=== PATIENT | female | born 1940 | race Caucasian/White ===

== ENCOUNTER 2018-08-09 10:45 | Observation (INO) | payer MEDICARE, OTHER ==
[2018-08-09] MEDS ORDERED: Albuterol/Ipratropium 3.0-0.5 MG/3 ML Neb Soln NEB ONE (11:13)
[2018-08-09] MEDS ORDERED: Acetaminophen 325 MG Tab PO PRN (11:14)
[2018-08-09] MEDS ORDERED: Magnesium Hydroxide 400 MG/5 ML Susp 30 ML Cup PO PRN (11:14)
[2018-08-09] MEDS ORDERED: Albuterol 0.083% 2.5 MG/3 ML Neb Soln NEB PRN (11:14)
[2018-08-09] MEDS ORDERED: Sodium Chloride 0.9% 10 ML Syringe FLUSH PRN (11:14)
[2018-08-09] MEDS ORDERED: Ondansetron 4 MG Tab.DIS PO PRN (11:14)
[2018-08-09 11:49] LABS: CHLORIDE,CL 106 mEq/L (98-106); SODIUM,NA 142 mEq/L (136-145)
[2018-08-09] MEDS: methylPREDNISolone Sodium Succinate 125 MG/2 ML SDV IVPUSH SCH (11:58)
[2018-08-09] MEDS: Sodium Chloride 0.9% 1,000 ML IV SCH (11:58)
[2018-08-09] MEDS: Albuterol/Ipratropium 3.0-0.5 MG/3 ML Neb Soln NEB SCH ×3 (11:59→19:31)
[2018-08-09] MEDS: Levofloxacin/Dextrose 5%-Water 500 MG in Premix Bag 1 BAG IV SCH (12:02)
[2018-08-09] MEDS: Enoxaparin 40 MG/0.4 ML Syringe SUBCUT SCH (12:09)
[2018-08-09] MEDS ORDERED: Albuterol HFA 18 Gm Inhaler INH PRN (14:58)
[2018-08-09] MEDS: GUAIFENESIN 200 MG PO PRN (17:58)
[2018-08-09] MEDS: FORMOTEROL INH SCH (19:32)
[2018-08-09] MEDS: BUDESONIDE INH SCH (19:32)
[2018-08-10] MEDS: Sodium Chloride 0.9% 1,000 ML IV SCH (00:29)
[2018-08-10] MEDS: GUAIFENESIN 200 MG PO PRN (01:09)
[2018-08-10] MEDS: Albuterol/Ipratropium 3.0-0.5 MG/3 ML Neb Soln NEB SCH ×4 (07:31→19:30)
[2018-08-10] MEDS: methylPREDNISolone Sodium Succinate 125 MG/2 ML SDV IVPUSH SCH ×2 (07:32→16:04)
[2018-08-10] MEDS: Aspirin 81 MG Tab.EC PO SCH (07:32)
[2018-08-10] MEDS: BUDESONIDE INH SCH ×2 (07:33→19:30)
[2018-08-10] MEDS: FORMOTEROL INH SCH ×2 (07:33→19:30)
[2018-08-10] MEDS: Levofloxacin/Dextrose 5%-Water 500 MG in Premix Bag 1 BAG IV SCH (11:37)
[2018-08-10] MEDS: Enoxaparin 40 MG/0.4 ML Syringe SUBCUT SCH (11:38)
--- NOTE | 2018-08-10 14:14 | PCM.PN ---
- General Info Date of Service: 08/10/18 Admission Dx/Problem (Free Text): COPD Exacerbation with URI Functional Status: Reports: Pain Controlled, Tolerating Diet, Ambulating - Review of Systems General: Denies: Fever, Weakness, Fatigue HEENT: Reports: Rhinitis Pulmonary: Reports: Shortness of Breath, Cough, Wheezing Cardiovascular: Denies: Chest Pain, Edema, Lightheadedness Gastrointestinal: Denies: Abdominal Pain, Nausea, Vomiting Genitourinary: Reports: No Symptoms Musculoskeletal: Reports: No Symptoms Skin: Reports: No Symptoms Neurological: Reports: No Symptoms - Patient Data Vitals - Most Recent: Last Vital Signs Temp 97.1 F 08/10/18 11:53 Pulse 81 08/10/18 11:53 Resp 20 08/10/18 11:53 BP 140/79 08/10/18 11:53 Pulse Ox 95 08/10/18 11:53 Weight - Most Recent: 209 lb 1.6 oz I&O - Last 24 Hours: Intake & Output 08/09/18 08/10/18 08/10/18 22:59 06:59 14:59 Intake Total 939 365 Balance 939 365 Lab Results Last 24 Hours: Laboratory Results - last 24 hr 08/09/18 Range/Units 11:30 D-Dimer, Quantitative 0.44 (0.00-0.50) Young Results Last 24 Hours: Microbiology 08/09/18 15:05 Influenza Type A Antigen Screen - Final Nasopharyngeal Swab NEGATIVE INFLUENZA A VIRUS AG Influenza Type B Antigen Screen - Final NEGATIVE INFLUENZA B VIRUS AG Med Orders - Current: Current Medications Acetaminophen (Tylenol) 650 mg PO Q4H PRN PRN Reason: Pain (Mild 1-3)/fever Albuterol (Proventil Neb Soln) 2.5 mg NEB Q2H PRN PRN Reason: Shortness Of Breath/wheezing Albuterol (Ventolin Hfa) 0 gm INH Q4H PRN PRN Reason: Dyspnea Albuterol/Ipratropium (Duoneb 3.0-0.5 Mg/3 Ml) 3 ml NEB QIDRT [facility] Last Admin: 08/10/18 11:38 Dose: 3 ml Aspirin (Halfprin) 81 mg PO DAILY [facility] Last Admin: 08/10/18 07:32 Dose: 81 mg Enoxaparin Sodium (Lovenox) 40 mg SUBCUT DAILY@1200 [facility] Last Admin: 08/10/18 11:38 Dose: 40 mg Guaifenesin (Organ-I Nr) 200 mg PO Q4H PRN PRN Reason: Cough Last Admin: 08/10/18 01:09 Dose: 200 mg Levofloxacin/Dextrose 500 mg/ (Premix) 100 mls @ 100 mls/hr IV DAILY@1200 [facility] Last Admin: 08/10/18 11:37 Dose: 100 mls/hr Sodium Chloride (Normal Saline) 1,000 mls @ 75 mls/hr IV ASDIRECTED [facility] Last Admin: 08/10/18 00:29 Dose: 75 mls/hr Magnesium Hydroxide (Milk Of Magnesia) 30 ml PO Q12H PRN PRN Reason: Constipation Methylprednisolone Sodium Succinate (Solu-Medrol) 62.5 mg IVPUSH 0800,1600 [facility] Last Admin: 08/10/18 07:32 Dose: 62.5 mg Ptom Budesonide/Formoterol 160/4. 5mcg 2 inh INH BID [facility] Last Admin: 08/10/18 07:33 Dose: 2 inh Ondansetron HCl (Zofran Odt) 4 mg PO Q4H PRN PRN Reason: nausea, able to take PO Sodium Chloride (Saline Flush) 10 ml FLUSH ASDIRECTED PRN PRN Reason: Keep Vein Open Discontinued Medications Albuterol/Ipratropium (Duoneb 3.0-0.5 Mg/3 Ml) 6 ml NEB ONETIME ONE Stop: 08/09/18 11:14 Last Admin: 08/09/18 11:21 Dose: 6 ml - Exam General: Alert, Oriented HEENT: Mucous Membr. Moist/[place] Neck: Supple Lungs: Decreased Breath Sounds, Wheezing Cardiovascular: Regular Rate, Regular Rhythm GI/Abdominal Exam: Normal Bowel Sounds, Soft, Non-Tender Extremities: Normal Inspection, No Pedal Edema Skin: Warm, Dry Neurological: No New Focal Deficit - Problem List & Annotations (1) COPD (chronic obstructive pulmonary disease) with acute bronchitis SNOMED Code(s): 053151040697064 Code(s): J44.0 - CHRONIC OBSTRUCTIVE PULMON DISEASE W ACUTE LOWER RESP INFCT ; J20.9 - ACUTE BRONCHITIS, UNSPECIFIED Status: Acute Priority: High Current Visit: Yes - Problem List Review Problem List Initiated/Reviewed/Updated: Yes - My Orders Last 24 Hours: My Active Orders 08/09/18 14:58 Albuterol [Ventolin HFA] 0 gm INH Q4H PRN 08/09/18 14:59 guaiFENesin [Organ-I NR] 200 mg PO Q4H PRN 08/09/18 20:00 Budesonide/Formoterol 2 inh INH BID 08/10/18 08:00 Aspirin [Halfprin] 81 mg PO DAILY - Assessment Assessment:: COPD Exacerbation with Acute Bronchitis - Plan Plan:: Patient much improved today. Is ambulating about, sats drop to around 90% but tolerating much better than yesterday. Does still have expiratory wheezing noted throughout. Afebrile. Labs yesterday on admit are stable. WBC 10.5, CRP 2.1. Urine did show occasional bacteria. D-dimer negative. Influenza negative. Chest xray does not show concern for infiltrate. Dr. De Anda in with patient as well, did discuss Daliresp as possible add on medication on discharge. Patient agreeable if cost has decreased since last discussion held about this. Will continue neb treatments. Levaquin IV. Solu Medrol. Possible discharge home tomorrow.
[2018-08-11] MEDS: Aspirin 81 MG Tab.EC PO SCH (07:22)
[2018-08-11] MEDS: methylPREDNISolone Sodium Succinate 125 MG/2 ML SDV IVPUSH SCH (07:22)
[2018-08-11] MEDS: Albuterol/Ipratropium 3.0-0.5 MG/3 ML Neb Soln NEB SCH (07:22)
[2018-08-11 07:44] LABS: CHLORIDE,CL 109 mEq/L (98-106); SODIUM,NA 146 mEq/L (136-145)
[2018-08-11 08:30] VITALS: BP 147/60
[2018-08-11] MEDS: FORMOTEROL INH SCH (09:17)
[2018-08-11] MEDS: BUDESONIDE INH SCH (09:17)
[2018-08-11] MEDS: Levofloxacin/Dextrose 5%-Water 500 MG in Premix Bag 1 BAG IV SCH (10:37)
--- NOTE | 2018-08-11 11:02 | PCM.PN ---
- General Info Date of Service: 08/11/18 Admission Dx/Problem (Free Text): COPD Exacerbation with URI Functional Status: Reports: Pain Controlled, Tolerating Diet, Ambulating Pain Score: 0 - Review of Systems General: Reports: No Symptoms HEENT: Reports: No Symptoms Pulmonary: Reports: Cough, Other (reports cough and SOB have improved significantly since yesterday) Cardiovascular: Reports: No Symptoms Gastrointestinal: Reports: No Symptoms Neurological: Reports: No Symptoms - Patient Data Vitals - Most Recent: Last Vital Signs Temp 36.2 C 08/11/18 08:00 Pulse 85 08/11/18 08:00 Resp 18 08/11/18 08:00 BP 147/60 H 08/11/18 08:00 Pulse Ox 94 L 08/11/18 08:00 Weight - Most Recent: 94.846 kg Lab Results Last 24 Hours: Laboratory Results - last 24 hr 08/11/18 08/11/18 Range/Units 07:30 07:30 WBC 13.0 H (5.0-10.0) 10^3/uL RBC 4.44 (4.00-5.50) 10^6/uL Hgb 12.5 (12.0-16.0) g/dL Hct 37.9 (37.0-47.0) % MCV 85.4 (82.0-94.0) fL MCH 28.2 (27.0-32.0) pg MCHC 33.0 (33.0-38.0) g/dL RDW Coeff of Ginger 13.7 (11.0-15.0) % Plt Count 331 (150-400) 10^3/uL Neut % (Auto) 73.2 (35-85) % Lymph % (Auto) 15.8 (10-55) % [place] % (Auto) 10.8 (0-16) % Eos % (Auto) 0 (0-5) % Baso % (Auto) 0.2 (0-3) % Neut # (Auto) 9.48 H (1.80-7.00) 10^3/uL Lymph # (Auto) 2.05 (1.00-4.80) 10^3/uL [place] # (Auto) 1.40 H (0.00-0.80) 10^3/uL Eos # (Auto) 0.00 (0.00-0.45) 10^3/uL Baso # (Auto) 0.02 10^3/uL Sodium 146 H (136-145) mEq/L Potassium 3.8 (3.5-5.0) mEq/L Chloride 109 H (98-106) mEq/L Carbon Dioxide 26 (21-32) mmol/L BUN 16 D (7-18) mg/dL Creatinine 0.8 (0.6-1.0) mg/dL Est Cr Clr Drug Dosing 51.66 mL/min Estimated GFR (MDRD) > 60 (>=60) mL/min Glucose 105 H (75-99) mg/dL Calcium 9.1 (8.4-10.1) mg/dL C-Reactive Protein 1.0 H (0.2-0.8) mg/dL Med Orders - Current: Current Medications Acetaminophen (Tylenol) 650 mg PO Q4H PRN PRN Reason: Pain (Mild 1-3)/fever Albuterol (Proventil Neb Soln) 2.5 mg NEB Q2H PRN PRN Reason: Shortness Of Breath/wheezing Albuterol (Ventolin Hfa) 0 gm INH Q4H PRN PRN Reason: Dyspnea Albuterol/Ipratropium (Duoneb 3.0-0.5 Mg/3 Ml) 3 ml NEB QIDRT [facility] Last Admin: 08/11/18 07:22 Dose: 3 ml Aspirin (Halfprin) 81 mg PO DAILY [facility] Last Admin: 08/11/18 07:22 Dose: 81 mg Enoxaparin Sodium (Lovenox) 40 mg SUBCUT DAILY@1200 [facility] Last Admin: 08/10/18 11:38 Dose: 40 mg Guaifenesin (Organ-I Nr) 200 mg PO Q4H PRN PRN Reason: Cough Last Admin: 08/10/18 01:09 Dose: 200 mg Levofloxacin/Dextrose 500 mg/ (Premix) 100 mls @ 100 mls/hr IV DAILY@1200 [facility] Last Admin: 08/11/18 10:37 Dose: 100 mls/hr Sodium Chloride (Normal Saline) 1,000 mls @ 75 mls/hr IV ASDIRECTED [facility] Last Admin: 08/10/18 00:29 Dose: 75 mls/hr Magnesium Hydroxide (Milk Of Magnesia) 30 ml PO Q12H PRN PRN Reason: Constipation Methylprednisolone Sodium Succinate (Solu-Medrol) 62.5 mg IVPUSH 0800,1600 [facility] Last Admin: 08/11/18 07:22 Dose: 62.5 mg Ptom Budesonide/Formoterol 160/4. 5mcg 2 inh INH BID [facility] Last Admin: 08/11/18 09:17 Dose: 2 inh Ondansetron HCl (Zofran Odt) 4 mg PO Q4H PRN PRN Reason: nausea, able to take PO Sodium Chloride (Saline Flush) 10 ml FLUSH ASDIRECTED PRN PRN Reason: Keep Vein Open Discontinued Medications Albuterol/Ipratropium (Duoneb 3.0-0.5 Mg/3 Ml) 6 ml NEB ONETIME ONE Stop: 08/09/18 11:14 Last Admin: 08/09/18 11:21 Dose: 6 ml - Exam General: Alert, Oriented, Cooperative, No Acute Distress Lungs: Decreased Breath Sounds, Wheezing Cardiovascular: Regular Rate, Regular Rhythm Peripheral Pulses: 2+: Radial (L), Radial (R) Skin: Warm, Dry, Intact Neurological: No New Focal Deficit Psy/Mental Status: Alert, Normal Affect, Normal Mood - Problem List Review Problem List Initiated/Reviewed/Updated: Yes - My Orders Last 24 Hours: My Active Orders 08/11/18 10:55 Ready for Discharge [RC] PER UNIT ROUTINE - Assessment Assessment:: COPD Exacerbation with Acute Bronchitis - Plan Plan:: Patient much improved today. Is ambulating about, sats drop to around 90% but tolerating much better than yesterday. Does still have expiratory wheezing noted throughout. Afebrile. Labs yesterday on admit are stable. WBC 10.5, CRP 2.1. Urine did show occasional bacteria. D-dimer negative. Influenza negative. Chest xray does not show concern for infiltrate. Dr. De Anda in with patient as well, did discuss Daliresp as possible add on medication on discharge. Patient agreeable if cost has decreased since last discussion held about this. Will continue neb treatments. Levaquin IV. Solu Medrol. Possible discharge home tomorrow. 08/11/18 Patient reports feeling significant improvement since yesterday. Expiratory wheezing continues but is localized to the upper posterior lung santos. She has some cough as well. She maintains an O2 sat >90% while ambulating. Her labs show a small elevation in WBC but this is likely due to the steroids. Labs otherwise grossly WNL. VS stable. BP noted to be somewhat elevated. Rx for PO Levaquin 750 mg PO tab x 3 more days after DC. She reports that family will be staying with her today and she has strong home / community support after DC. She reports that she will follow up with PCP early next week which I encouraged her to do. I also advised her to go immediately to the closest ER for any new or worse symptoms which she reports understanding and agreement with. DC home today after IV abx.
--- NOTE | 2018-08-11 11:04 | PCM.DCSUM1 ---
Discharge Summary - Hospital Course Free Text/Narrative:: Admitted for CAP and COPD exacerbation. Brief uneventful stay here in hospital with marked improved in ROS and PE. DC home stable today. Diagnosis: Stroke: No - Discharge Data Discharge Date: 08/11/18 Discharge Disposition: Home, Self-Care 01 Condition: Good - Patient Instructions Diet: Usual Diet as Tolerated Activity: Cough & Deep Breathe Driving: May Drive Today Showering/Bathing: May Shower Notify Provider of: Fever Other/Special Instructions: GO IMMEDIATELY TO THE CLOSEST ER FOR ANY NEW OR WORSE SYMPTOMS. - Discharge Plan *PRESCRIPTION DRUG MONITORING PROGRAM REVIEWED*: Not Applicable *COPY OF PRESCRIPTION DRUG MONITORING REPORT IN PATIENT BRENDA: Not Applicable Home Medications: Home Meds Albuterol Sulfate [Ventolin Hfa] 1 - 2 puff INH Q4H PRN 12/18/15 [History] Ascorbic Acid [Vitamin C] 500 mg PO DAILY 12/18/15 [History] Aspirin [Adult Low Dose Aspirin EC] 81 mg PO DAILY 12/18/15 [History] Calcium Carbonate/Vitamin D3 [Calcium 1,000 + D3 Caplet] 1 tab PO DAILY [History] Cholecalciferol (Vitamin D3) [Vitamin D] 1,000 unit PO DAILY 12/18/15 [History] Ibuprofen 200 mg PO Q6H PRN 12/18/15 [History] Multivitamin [Daily Multiple Vitamin] 1 tab PO DAILY 12/18/15 [History] Vitamin E 1 cap PO DAILY 12/18/15 [History] Budesonide/Formoterol [Symbicort 160-4.5 MCG] 2 inh INH BID 04/16/16 [History] guaiFENesin [Guaifenesin] 200 mg PO Q4H PRN 08/09/18 [History] Patient Handouts: Chronic Obstructive Pulmonary Disease Exacerbation, Upper Respiratory Infection, Adult - Discharge Summary/Plan Comment DC Time >30 min.: No - Patient Data Vitals - Most Recent: Last Vital Signs Temp 36.2 C 08/11/18 08:00 Pulse 85 08/11/18 08:00 Resp 18 08/11/18 08:00 BP 147/60 H 08/11/18 08:00 Pulse Ox 94 L 08/11/18 08:00 Weight - Most Recent: 94.846 kg Lab Results - Last 24 hrs: Laboratory Results - last 24 hr 08/11/18 08/11/18 Range/Units 07:30 07:30 WBC 13.0 H (5.0-10.0) 10^3/uL RBC 4.44 (4.00-5.50) 10^6/uL Hgb 12.5 (12.0-16.0) g/dL Hct 37.9 (37.0-47.0) % MCV 85.4 (82.0-94.0) fL MCH 28.2 (27.0-32.0) pg MCHC 33.0 (33.0-38.0) g/dL RDW Coeff of Ginger 13.7 (11.0-15.0) % Plt Count 331 (150-400) 10^3/uL Neut % (Auto) 73.2 (35-85) % Lymph % (Auto) 15.8 (10-55) % [place] % (Auto) 10.8 (0-16) % Eos % (Auto) 0 (0-5) % Baso % (Auto) 0.2 (0-3) % Neut # (Auto) 9.48 H (1.80-7.00) 10^3/uL Lymph # (Auto) 2.05 (1.00-4.80) 10^3/uL [place] # (Auto) 1.40 H (0.00-0.80) 10^3/uL Eos # (Auto) 0.00 (0.00-0.45) 10^3/uL Baso # (Auto) 0.02 10^3/uL Sodium 146 H (136-145) mEq/L Potassium 3.8 (3.5-5.0) mEq/L Chloride 109 H (98-106) mEq/L Carbon Dioxide 26 (21-32) mmol/L BUN 16 D (7-18) mg/dL Creatinine 0.8 (0.6-1.0) mg/dL Est Cr Clr Drug Dosing 51.66 mL/min Estimated GFR (MDRD) > 60 (>=60) mL/min Glucose 105 H (75-99) mg/dL Calcium 9.1 (8.4-10.1) mg/dL C-Reactive Protein 1.0 H (0.2-0.8) mg/dL Med Orders - Current: Current Medications Acetaminophen (Tylenol) 650 mg PO Q4H PRN PRN Reason: Pain (Mild 1-3)/fever Albuterol (Proventil Neb Soln) 2.5 mg NEB Q2H PRN PRN Reason: Shortness Of Breath/wheezing Albuterol (Ventolin Hfa) 0 gm INH Q4H PRN PRN Reason: Dyspnea Albuterol/Ipratropium (Duoneb 3.0-0.5 Mg/3 Ml) 3 ml NEB QIDRT [facility] Last Admin: 08/11/18 07:22 Dose: 3 ml Aspirin (Halfprin) 81 mg PO DAILY [facility] Last Admin: 08/11/18 07:22 Dose: 81 mg Enoxaparin Sodium (Lovenox) 40 mg SUBCUT DAILY@1200 [facility] Last Admin: 08/10/18 11:38 Dose: 40 mg Guaifenesin (Organ-I Nr) 200 mg PO Q4H PRN PRN Reason: Cough Last Admin: 08/10/18 01:09 Dose: 200 mg Levofloxacin/Dextrose 500 mg/ (Premix) 100 mls @ 100 mls/hr IV DAILY@1200 [facility] Last Admin: 08/11/18 10:37 Dose: 100 mls/hr Sodium Chloride (Normal Saline) 1,000 mls @ 75 mls/hr IV ASDIRECTED [facility] Last Admin: 08/10/18 00:29 Dose: 75 mls/hr Magnesium Hydroxide (Milk Of Magnesia) 30 ml PO Q12H PRN PRN Reason: Constipation Methylprednisolone Sodium Succinate (Solu-Medrol) 62.5 mg IVPUSH 0800,1600 [facility] Last Admin: 08/11/18 07:22 Dose: 62.5 mg Ptom Budesonide/Formoterol 160/4. 5mcg 2 inh INH BID [facility] Last Admin: 08/11/18 09:17 Dose: 2 inh Ondansetron HCl (Zofran Odt) 4 mg PO Q4H PRN PRN Reason: nausea, able to take PO Sodium Chloride (Saline Flush) 10 ml FLUSH ASDIRECTED PRN PRN Reason: Keep Vein Open Discontinued Medications Albuterol/Ipratropium (Duoneb 3.0-0.5 Mg/3 Ml) 6 ml NEB ONETIME ONE Stop: 08/09/18 11:14 Last Admin: 08/09/18 11:21 Dose: 6 ml
== END 2018-08-11 12:34 | disposition home or self-care (01) ==
LOC: UNDOADMOB 10:45 → CC.MS 10:45
PROVIDERS: ADMIT Physician Assistant Medical; ATTEND Family Medicine
DX: J44.1 Chronic obstructive pulmonary disease with (acute) exacerbation (principal); J44.0 Chronic obstructive pulmonary disease with (acute) lower respiratory infection; J20.9 Acute bronchitis, unspecified; J18.9 Pneumonia, unspecified organism; L57.0 Actinic keratosis; E78.5 Hyperlipidemia, unspecified; M85.80 Other specified disorders of bone density and structure, unspecified site; L82.1 Other seborrheic keratosis; H93.19 Tinnitus, unspecified ear; R33.9 Retention of urine, unspecified; R63.5 Abnormal weight gain; Z88.5 Allergy status to narcotic agent; Z79.899 Other long term (current) drug therapy; Z79.82 Long term (current) use of aspirin
CPT/HCPCS: 36415; 71046; 80048; 81001; 85025; 85379; 86140; 87804; 94640; 96361; 96365; 96366; 96372; 96375; 96376; 99217; 99219; 99225; A9270; G0378; J1650; J1956; J2930; J7030; J7620-GY

== ENCOUNTER 2019-05-22 17:03 | Emergency (ER) | payer OTHER, MEDICARE ==
[~2019-05-22 17:03] MED LIST: Albuterol/Ipratropium 3.0-0.5 MG/3 ML Neb Soln ONE
[2019-05-22 18:01] LABS: CHLORIDE,CL 104 mEq/L (98-106); SODIUM,NA 140 mEq/L (136-145)
[2019-05-22] MEDS ORDERED: Diphtheria,Pertussis(Acell),Tetanus Vaccine 0.5 ML Syringe IM ONE (18:29)
[2019-05-22] MEDS ORDERED: Iopamidol 755 Mg/ML 100 ML Bottle IVPUSH ONE (18:36)
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
[2019-05-22] MEDS ORDERED: Sodium Chloride 0.9% 500 ML IV SCH (18:45)
[2019-05-22 19:47] VITALS: BP 150/67
== END 2019-05-22 20:08 | disposition home or self-care (01) ==
LOC: CC.ED 17:03
DX: S56.911A Strain of unspecified muscles, fascia and tendons at forearm level, right arm, initial encounter (principal); J44.0 Chronic obstructive pulmonary disease with (acute) lower respiratory infection; J20.9 Acute bronchitis, unspecified; Z23 Encounter for immunization; M19.90 Unspecified osteoarthritis, unspecified site; Z87.891 Personal history of nicotine dependence; Z88.5 Allergy status to narcotic agent; Z79.82 Long term (current) use of aspirin; Z79.899 Other long term (current) drug therapy; V89.2XXA Person injured in unspecified motor-vehicle accident, traffic, initial encounter
CPT/HCPCS: 36415; 71045; 71260; 80053; 82150; 82550; 83605; 84484; 85025; 90471; 90715; 93005; 94640; 96360; 99285-25; J7040; J7620-GY; Q9967

== ENCOUNTER 2024-11-16 16:04 | Inpatient (IN) | payer MEDICARE, OTHER ==
[2024-11-16] MEDS: Albuterol/Ipratropium 3.0-0.5 MG/3 ML Neb Soln NEB ONE (16:25)
[2024-11-16] MEDS ORDERED: Acetaminophen 325 MG Tab PO PRN (16:25)
[2024-11-16] MEDS ORDERED: Ondansetron 4 MG Tab.DIS PO PRN (16:25)
[2024-11-16] MEDS ORDERED: Polyethylene Glycol 3350 Powder 17 GM Packet PO PRN (16:25)
[2024-11-16] MEDS ORDERED: Docusate Sodium 100 MG Cap PO PRN (16:25)
[2024-11-16] MEDS ORDERED: Furosemide 20 MG Tab PO PRN (16:38)
[2024-11-16] MEDS ORDERED: traMADol 50 MG Tab PO PRN (16:38)
[2024-11-16] MEDS ORDERED: guaiFENesin 200 MG Tab PO PRN (16:38)
[2024-11-16] MEDS: methylPREDNISolone Sodium Succinate 125 MG/2 ML SDV IVPUSH STA (16:56)
[2024-11-16] MEDS: Azithromycin 250 MG Tab PO SCH (16:57)
[2024-11-16] MEDS: cefTRIAXone 1 GM Vial IVPUSH SCH (16:58)
[2024-11-16] MEDS: Formoterol/Mometasone 200-5 MCG 8.8 GM Inhaler INH SCH (20:03)
[2024-11-16] MEDS: Melatonin 3 MG Tab PO SCH (20:04)
[2024-11-16] MEDS: Magnesium Oxide 400 MG Tab PO SCH (20:04)
[2024-11-16] MEDS: Calcium Carbonate/Vitamin D3 1250 MG-5 MCG Tab PO SCH (20:04)
[2024-11-16] MEDS: Albuterol/Ipratropium 3.0-0.5 MG/3 ML Neb Soln NEB SCH (20:04)
[2024-11-17] MEDS: Albuterol 0.083% 2.5 MG/3 ML Neb Soln NEB PRN (01:34)
[2024-11-17] MEDS: Multivitamin Tab PO SCH (07:45)
[2024-11-17] MEDS: methylPREDNISolone Sodium Succinate 40 MG/1 ML SDV IVPUSH SCH (07:45)
[2024-11-17] MEDS: Calcium Carbonate/Vitamin D3 1250 MG-5 MCG Tab PO SCH (07:45)
[2024-11-17] MEDS: Aspirin 81 MG Tab.EC PO SCH (07:46)
[2024-11-17 07:51] LABS: BASOPHILS ABSOLUTE AUTO 0.02 10^3/uL (0.00-0.50); BASOPHILS PERCENT AUTO 0.3 % (0-1); HEMATOCRIT 38.8 % (37.0-47.0); HEMOGLOBIN 12.8 g/dL (12.0-16.0); IMMATURE GRAN ABSOLUTE AUTO 0.01 10^3/uL (0.00-0.49); IMMATURE GRAN PERCENT AUTO 0.2 % (0.0-4.9); LYMPHOCYTES ABSOLUTE AUTO 1.05 10^3/uL (0.60-5.00); LYMPHOCYTES PERCENT AUTO 17.1 % (24-44); MEAN CORPUSCULAR HEMOGLOBIN 28.3 pg (27.0-32.0); MEAN CORPUSCULAR VOLUME 85.8 fL (83.0-97.0); MONOCYTES ABSOLUTE AUTO 0.31 10^3/uL (0.00-1.50); NEUTROPHILS ABSOLUTE AUTO 4.76 x10^3/uL (1.80-8.00); NEUTROPHILS PERCENT AUTO 77.4 % (41-71); PLATELET COUNT,PLT 328 10^3/uL (150-400); RED BLOOD CELL COUNT 4.52 x10^6/uL (4.00-5.50); WHITE BLOOD CELL COUNT,WBC 6.2 10^3/uL (4.0-11.0)
[2024-11-17 07:57] LABS: CALCIUM 9.7 mg/dL (8.4-10.1); CREATININE 0.6 mg/dL (0.6-1.0); EST CRCL DRUG DOSING (CG) 58.77 mL/min; MAGNESIUM 2.2 mg/dL (1.8-2.4); POTASSIUM,K 4.5 mEq/L (3.5-5.0)
[2024-11-17] MEDS: ROFLUMILAST 500 MCG PO SCH (09:11)
[2024-11-17] MEDS: Enoxaparin 40 MG/0.4 ML Syringe SUBCUT SCH (11:22)
[2024-11-17] MEDS: Magnesium Sulf/Wat 2 GM/50 mL 2 GM in Premix Bag 1 BAG IV ONE (11:22)
[2024-11-18 07:24] LABS: CALCIUM 9.4 mg/dL (8.4-10.1); CREATININE 0.7 mg/dL (0.6-1.0); EST CRCL DRUG DOSING (CG) 50.37 mL/min; MAGNESIUM 2.4 mg/dL (1.8-2.4); POTASSIUM,K 4.2 mEq/L (3.5-5.0)
[2024-11-18 07:55] LABS: BASOPHILS ABSOLUTE AUTO 0.02 10^3/uL (0.00-0.50); BASOPHILS PERCENT AUTO 0.2 % (0-1); HEMATOCRIT 37.9 % (37.0-47.0); HEMOGLOBIN 12.2 g/dL (12.0-16.0); IMMATURE GRAN ABSOLUTE AUTO 0.04 10^3/uL (0.00-0.49); IMMATURE GRAN PERCENT AUTO 0.4 % (0.0-4.9); LYMPHOCYTES ABSOLUTE AUTO 1.42 10^3/uL (0.60-5.00); LYMPHOCYTES PERCENT AUTO 12.9 % (24-44); MEAN CORPUSCULAR HEMOGLOBIN 28.6 pg (27.0-32.0); MEAN CORPUSCULAR HGB CONC 32.2 g/dL (32.0-36.0); MEAN CORPUSCULAR VOLUME 88.8 fL (83.0-97.0); MONOCYTES ABSOLUTE AUTO 1.03 10^3/uL (0.00-1.50); MONOCYTES PERCENT AUTO 9.4 % (0-10); NEUTROPHILS PERCENT AUTO 77.1 % (41-71); PLATELET COUNT,PLT 329 10^3/uL (150-400); RED BLOOD CELL COUNT 4.27 x10^6/uL (4.00-5.50)
[2024-11-18 13:40] VITALS: BP 158/89; PULSE 94
== END 2024-11-18 13:30 | disposition home or self-care (01) | DRG 192 ==
LOC: UNDOADMIN 16:04 → CC.MS 16:04
PROVIDERS: ADMIT Nurse Practitioner; ATTEND Nurse Practitioner
DX: J44.1 Chronic obstructive pulmonary disease with (acute) exacerbation (principal); J20.9 Acute bronchitis, unspecified; M19.90 Unspecified osteoarthritis, unspecified site; J44.0 Chronic obstructive pulmonary disease with (acute) lower respiratory infection; Z66 Do not resuscitate; Z72.0 Tobacco use; Z88.8 Allergy status to other drugs, medicaments and biological substances; Z79.899 Other long term (current) drug therapy; Z90.49 Acquired absence of other specified parts of digestive tract
CPT/HCPCS: 0240U; 36415; 71046; 80048; 80053; 83605; 83735; 85025; 86140; 94640; 99223; 99233; 99238; A9270-GY; J0696; J1650; J2919; J3475; J7613-GY; J7620-GY